=== PATIENT | female | born 1935 | race Caucasian/White ===

== ENCOUNTER 2020-08-04 16:33 | Inpatient (IN) ==
[2020-08-04] MEDS ORDERED: Aspirin 325 MG TABLET PO ONE (17:32)
[2020-08-04 17:57] LABS: Basophils % 0.5 %; Eosinophils # 0.1 K/mcL (0.0-0.6); Hematocrit 46.2 % (35.3-44.9); Hemoglobin 13.9 g/dL (11.5-15.4); Immature Granulocytes % 0.3 % (0-4); Lymphocytes # 1.2 K/mcL (0.6-4.6); Lymphocytes % 13.4 %; Mean Corpuscular HGB Conc 30.1 g/dL (31.6-35.5); Mean Corpuscular Volume 96.5 fL (83.0-100.0); Mean Platelet Volume 10.2 fL (9.4-12.4); Monocytes # 0.8 K/mcL (0.0-1.3); Monocytes % 9.1 %; Neutrophils # 6.7 K/mcL (1.6-8.9); Platelet Count 289 K/mcL (140-400); Red Blood Count 4.79 M/mcL (3.82-4.97); Red Cell Distribution Width 13.4 % (11.5-14.5); Segmented Neutrophils % 75.7 %; White Blood Count 8.8 K/mcL (4.3-11.1)
[2020-08-04 18:12] LABS: BUN/Creatinine Ratio 12 (6-26); Blood Urea Nitrogen 11 mg/dL (8-23); Calcium 10.1 mg/dL (8.6-10.3); Carbon Dioxide 30 mEq/L (23-29); Chloride 101 mEq/L (98-107); Glucose 153 mg/dL (70-105); Osmolality,Calculated 284 (280-300); Potassium 4.7 mEq/L (3.5-5.1); Sodium 136 mEq/L (136-145); eGFR For African Americans > 60 (> 60); eGFR For Non-African Americans 58 (> 60)
[2020-08-04 18:13] LABS: Troponin I < 0.03 ng/mL (< 0.04)
[2020-08-04 19:18] LABS: Adenovirus Not Detected (Not Detect); Bordetella Pertussis Not Detected (Not Detect); Chlamydophila pneumoniae Not Detected (Not Detect); Coronavirus 229E Not Detected (Not Detect); Coronavirus HKU1 Not Detected (Not Detect); Coronavirus NL63 Not Detected (Not Detect); Coronavirus OC43 Not Detected (Not Detect); Human Metapneumovirus Not Detected (Not Detect); Human Rhinovirus/Enterovirus Not Detected (Not Detect); Influenza A Subtype 2009 H1 Not Detected (Not Detect); Influenza B Not Detected (Not Detect); Mycoplasma pneumoniae Not Detected (Not Detect); Parainfluenza Virus 1 Not Detected (Not Detect); Parainfluenza Virus 2 Not Detected (Not Detect); Parainfluenza Virus 3 Not Detected (Not Detect); Parainfluenza Virus 4 Not Detected (Not Detect); Respiratory Syncytial Virus Not Detected (Not Detect); SARS-CoV-2 Not Detected (Not Detect)
[2020-08-04] MEDS ORDERED: cefTRIAXone 1,000 MG in 0.9 % Sodium Chloride Mini Bag 100 ML IVPB ONE (19:25)
[2020-08-04] MEDS ORDERED: Azithromycin 500 MG in 0.9 % Sodium Chloride 250 ML IVPB ONE (19:25)
[2020-08-04] MEDS ORDERED: Ondansetron ODT 4 MG TAB.RAPDIS SL PRN (19:32)
[2020-08-04] MEDS ORDERED: Acetaminophen 325 MG TABLET PO PRN (19:32)
[2020-08-04] MEDS ORDERED: cefTRIAXone 1,000 MG in Water for inj. (sterile) 10 ML IVP ONE (19:36)
[2020-08-04] MEDS ORDERED: methylPREDNISolone 125 MG/2 ML VIAL IVP ONE (19:41)
[2020-08-04] MEDS ORDERED: D5% in Water 1,000 ML IVC PRN (19:44)
[2020-08-04] MEDS ORDERED: *HR* Dextrose 50 % in Water (Vial) 50 ML VIAL IVP PRN (19:44)
[2020-08-04] MEDS ORDERED: Dextrose Gel 15 GM/37.5 ML TUBE PO PRN ×2 (19:44)
[2020-08-04] MEDS: Ipratropium/Albuterol Neb 3 ML IH SCH ×2 (20:31→23:52)
[2020-08-04] MEDS ORDERED: Isovue-370 500 ML BOTTLE IVP ONE (20:33)
[2020-08-04 22:05] LABS: INR 1.4; Prothrombin Time 15.8 Seconds (9.4-12.1)
[2020-08-04] MEDS: Insulin LISPRO 300 UNITS/3 ML VIAL SQ SCH (22:15)
[2020-08-05 02:43] LABS: BUN/Creatinine Ratio 13 (6-26); Blood Urea Nitrogen 11 mg/dL (8-23); Calcium 9.1 mg/dL (8.6-10.3); Carbon Dioxide 29 mEq/L (23-29); Chloride 103 mEq/L (98-107); Glucose 108 mg/dL (70-105); Magnesium 1.8 mg/dL (1.6-2.6); Osmolality,Calculated 284 (280-300); Phosphorous 3.2 mg/dL (2.7-4.5); Potassium 4.1 mEq/L (3.5-5.1); Sodium 137 mEq/L (136-145); eGFR For African Americans > 60 (> 60); eGFR For Non-African Americans > 60 (> 60)
[2020-08-05] MEDS: Ipratropium/Albuterol Neb 3 ML IH SCH ×6 (03:21→23:51)
[2020-08-05] MEDS: *HR* Enoxaparin 40 MG/0.4 ML SYRINGE SQ SCH (05:09)
[2020-08-05 06:17] LABS: Hematocrit 42.6 % (35.3-44.9); Hemoglobin 12.8 g/dL (11.5-15.4); Mean Corpuscular Hemoglobin 29.1 pg (28.0-33.3); Mean Corpuscular Volume 96.8 fL (83.0-100.0); Mean Platelet Volume 10.2 fL (9.4-12.4); Platelet Count 224 K/mcL (140-400); Red Cell Distribution Width 13.5 % (11.5-14.5); White Blood Count 5.7 K/mcL (4.3-11.1)
[2020-08-05] MEDS ORDERED: Regadenoson 0.4 MG/5 ML SYRINGE IVP ONE (07:00)
[2020-08-05] MEDS ORDERED: *HR* Metoprolol 5 MG/5 ML VIAL IVP ONE (09:07)
[2020-08-05] MEDS ORDERED: 0.9 % Sodium Chloride 250 ML IVC ONE (09:08)
[2020-08-05] MEDS: Insulin LISPRO 300 UNITS/3 ML VIAL SQ SCH ×4 (13:09→19:52)
[2020-08-05] MEDS: predniSONE 20 MG TABLET PO SCH (13:10)
[2020-08-05] MEDS: Aspirin 81 MG TAB.CHEW PO SCH (13:10)
[2020-08-05] MEDS: cefTRIAXone 2,000 MG in Water for inj. (sterile) 20 ML IVP SCH (19:43)
[2020-08-05] MEDS: Azithromycin 500 MG in 0.9 % Sodium Chloride 250 ML IVPB SCH (19:44)
[2020-08-06] MEDS: Ipratropium/Albuterol Neb 3 ML IH SCH ×6 (03:56→23:48)
[2020-08-06] MEDS: *HR* Enoxaparin 40 MG/0.4 ML SYRINGE SQ SCH (05:07)
[2020-08-06] MEDS: Aspirin 81 MG TAB.CHEW PO SCH (08:21)
[2020-08-06] MEDS: predniSONE 20 MG TABLET PO SCH (08:21)
[2020-08-06] MEDS: Insulin LISPRO 300 UNITS/3 ML VIAL SQ SCH ×4 (08:22→22:02)
[2020-08-06] MEDS: Metoprolol XL (24 HR) Succ 25 MG TAB.ER.24H PO SCH (09:21)
[2020-08-06] MEDS: amLODIPine 5 MG TABLET PO SCH (09:21)
[2020-08-06] MEDS: Famotidine 20 MG TABLET PO SCH (09:21)
[2020-08-06] MEDS: PARoxetine 20 MG TABLET PO SCH (09:21)
[2020-08-06] MEDS: Isosorbide MONOnitrate (24 HR) 30 MG TAB.ER.24H PO SCH (09:21)
[2020-08-06] MEDS: Aspirin Enteric Coated 81 MG Tablet PO SCH (09:22)
[2020-08-06] MEDS: Apixaban 5 MG TABLET PO SCH ×2 (11:55→21:59)
[2020-08-06] MEDS: cefTRIAXone 2,000 MG in Water for inj. (sterile) 20 ML IVP SCH (21:59)
[2020-08-06] MEDS: Azithromycin 500 MG in 0.9 % Sodium Chloride 250 ML IVPB SCH (22:00)
[2020-08-07] MEDS: Ipratropium/Albuterol Neb 3 ML IH SCH ×2 (03:52→07:56)
[2020-08-07 07:10] VITALS: BP 162/84
[2020-08-07] MEDS: amLODIPine 5 MG TABLET PO SCH (07:43)
[2020-08-07] MEDS: Isosorbide MONOnitrate (24 HR) 30 MG TAB.ER.24H PO SCH (07:43)
[2020-08-07] MEDS: Apixaban 5 MG TABLET PO SCH (07:43)
[2020-08-07] MEDS: Insulin LISPRO 300 UNITS/3 ML VIAL SQ SCH (07:43)
[2020-08-07] MEDS: Metoprolol XL (24 HR) Succ 25 MG TAB.ER.24H PO SCH (07:43)
[2020-08-07] MEDS: PARoxetine 20 MG TABLET PO SCH (07:43)
[2020-08-07] MEDS: Aspirin Enteric Coated 81 MG Tablet PO SCH (07:43)
[2020-08-07] MEDS: Famotidine 20 MG TABLET PO SCH (07:43)
[2020-08-07] MEDS: predniSONE 20 MG TABLET PO SCH (07:43)
== END 2020-08-07 10:39 | disposition home or self-care (01) | DRG 871 ==
LOC: EMEROOARM 16:33 → 3BNU 16:33
PROVIDERS: ADMIT Family Medicine; ATTEND Family Medicine

== ENCOUNTER 2022-01-06 19:22 | Inpatient (IN) ==
[2022-01-06] MEDS ORDERED: 0.9 % Sodium Chloride 1,000 ML IVC ONE (19:44)
[2022-01-06 20:14] LABS: Basophils % 0.1 %; Eosinophils % 0.1 %; Hematocrit 38.5 % (35.3-44.9); Hemoglobin 12.2 g/dL (11.5-15.4); Immature Granulocytes % 0.7 % (0-4); Lymphocytes # 0.8 K/mcL (0.6-4.6); Lymphocytes % 5.4 %; Mean Corpuscular HGB Conc 31.7 g/dL (31.6-35.5); Mean Corpuscular Hemoglobin 28.9 pg (28.0-33.3); Mean Corpuscular Volume 91.2 fL (83.0-100.0); Mean Platelet Volume 10.8 fL (9.4-12.4); Monocytes # 0.7 K/mcL (0.0-1.3); Monocytes % 4.7 %; Neutrophils # 13.6 K/mcL (1.6-8.9); Platelet Count 216 K/mcL (140-400); Red Blood Count 4.22 M/mcL (3.82-4.97); Red Cell Distribution Width 14.2 % (11.5-14.5); White Blood Count 15.2 K/mcL (4.3-11.1)
[2022-01-06 20:21] LABS: INR 1.9; Prothrombin Time 21.5 Seconds (9.4-12.1)
[2022-01-06 20:24] LABS: Activated Partial Thrombo Time 36.1 Seconds (26.0-36.0)
[2022-01-06 20:31] LABS: Albumin 3.6 g/dL (3.5-5.7); Bilirubin,Direct 0.4 mg/dL (0.0-0.2); Bilirubin,Indirect 0.6 mg/dL (0.0-1.0); Calcium 10.2 mg/dL (8.6-10.3); Globulin 3.6 g/dL (2.4-3.5); Magnesium 1.7 mg/dL (1.6-2.6); Phosphorous 2.4 mg/dL (2.7-4.5); Potassium 4.4 mEq/L (3.5-5.1); Total Protein 7.2 g/dL (6.4-8.9)
[2022-01-06 20:41] LABS: Troponin I 0.07 ng/mL (< 0.04)
[2022-01-06] MEDS ORDERED: *HR* LORazepam 2 MG/ML VIAL IVP ONE (21:45)
[2022-01-06 21:46] LABS: Bacteria,Urine Few per hpf (None-Few); Bilirubin,Urine Negative (Negative); Blood,Urine Negative (Negative); Clarity,Urine Turbid (Clear); Color,Urine Yellow (Yellow); Glucose,Urine (UA) Normal (Normal); Hyaline Casts,Urine Few per lpf (None Seen); Ketones,Urine Negative (Negative); Leukocyte Esterase,Urine Negative (Negative); Mucus,Urine Few per lpf (None-Few); Nitrite,Urine Negative (Negative); PH,Urine 6.5 pH Units (5.0-8.0); Protein,Urine 30 mg/dL (Neg-Trace); RBC,Urine 0-3 per hpf (0-3); Specific Gravity,Urine 1.014 (1.010-1.025); Squamous Epithelial Cell,Urine Moderate per hpf (None-Few)
[2022-01-06] MEDS ORDERED: Ipratropium/Albuterol Neb 3 ML IH ONE (22:16)
[2022-01-06] MEDS ORDERED: methylPREDNISolone 125 MG/2 ML VIAL IVP ONE (22:16)
[2022-01-06] MEDS ORDERED: cefTRIAXone 1,000 MG in 0.9 % Sodium Chloride Mini Bag 100 ML IVPB ONE (22:29)
[2022-01-06 23:15] LABS: Influenza A PCR Negative (Negative); Influenza B PCR Negative (Negative); Resp. Syncytial Virus PCR Negative (Negative)
[2022-01-06 23:16] LABS: SARS-CoV-2 by PCR (In House) Negative (Negative)
[2022-01-06] MEDS ORDERED: Melatonin 3 MG TABLET PO PRN (23:57)
[2022-01-06] MEDS ORDERED: Ondansetron 4 MG/2 ML VIAL IVP PRN (23:57)
[2022-01-06] MEDS ORDERED: Acetaminophen 325 MG TABLET PO PRN (23:57)
[2022-01-06] MEDS ORDERED: Naloxone 0.4 MG/ML INJ IVP PRN (23:57)
[2022-01-07] MEDS ORDERED: 0.9 % Sodium Chloride 250 ML IVC ONE (01:03)
[2022-01-07] MEDS: Azithromycin 500 MG in 0.9 % Sodium Chloride 250 ML IVPB ONE ×2 (01:59→03:44)
[2022-01-07 02:28] LABS: Basophils % 0.2 %; Hematocrit 35.6 % (35.3-44.9); Hemoglobin 11.1 g/dL (11.5-15.4); Immature Granulocytes % 0.4 % (0-4); Lymphocytes # 0.3 K/mcL (0.6-4.6); Lymphocytes % 2.8 %; Mean Corpuscular HGB Conc 31.2 g/dL (31.6-35.5); Monocytes # 0.2 K/mcL (0.0-1.3); Monocytes % 1.3 %; Neutrophils # 11.4 K/mcL (1.6-8.9); Platelet Count 209 K/mcL (140-400); Red Blood Count 3.83 M/mcL (3.82-4.97); Red Cell Distribution Width 14.3 % (11.5-14.5); Segmented Neutrophils % 95.3 %; White Blood Count 11.9 K/mcL (4.3-11.1)
[2022-01-07] MEDS ORDERED: Azithromycin 500 MG in 0.9 % Sodium Chloride 250 ML IVPB ONE (03:00)
[2022-01-07 03:08] LABS: Alanine Aminotransferase 6 Units/L (7-52); Albumin 3.2 g/dL (3.5-5.7); Alkaline Phosphatase 78 Units/L (34-104); Aspartate Amino Transferase 30 Units/L (13-39); BUN/Creatinine Ratio 19 (6-26); Bilirubin,Total 0.8 mg/dL (0.3-1.0); Blood Urea Nitrogen 18 mg/dL (8-23); Calcium 9.4 mg/dL (8.6-10.3); Carbon Dioxide 25 mEq/L (23-29); Chloride 100 mEq/L (98-107); Globulin 3.1 g/dL (2.4-3.5); Glucose 134 mg/dL (70-105); Magnesium 1.7 mg/dL (1.6-2.6); Osmolality,Calculated 280 (280-300); Phosphorous 2.6 mg/dL (2.7-4.5); Sodium 133 mEq/L (136-145); Total Protein 6.3 g/dL (6.4-8.9); Troponin I < 0.03 ng/mL (< 0.04); eGFR For African Americans > 60 (> 60); eGFR For Non-African Americans 57 (> 60)
[2022-01-07] MEDS ORDERED: Albuterol 2.5 MG/3 ML NEBULIZER IH PRN (05:41)
[2022-01-07] MEDS ORDERED: *HR* Dextrose 50 % in Water (Syg) 50 ML SYRINGE IVP PRN (05:45)
[2022-01-07] MEDS ORDERED: D5% in Water 1,000 ML IVC PRN (05:45)
[2022-01-07] MEDS ORDERED: Dextrose 4 GM Chewable Tablets PO PRN ×2 (05:45)
[2022-01-07] MEDS: 0.9 % Sodium Chloride 1,000 ML IVC SCH ×2 (08:14→18:52)
[2022-01-07] MEDS: predniSONE 20 MG TABLET PO SCH (08:15)
[2022-01-07] MEDS: Insulin LISPRO 300 UNITS/3 ML VIAL SUBQ SCH ×3 (08:16→16:47)
[2022-01-07] MEDS: Ipratropium/Albuterol Neb 3 ML IH SCH ×3 (11:30→23:19)
[2022-01-07] MEDS: Metoprolol XL (24 HR) Succ 25 MG TAB.ER.24H PO SCH (14:43)
[2022-01-07] MEDS ORDERED: Insulin LISPRO 300 UNITS/3 ML VIAL SUBQ SCH (21:00)
[2022-01-07] MEDS: Apixaban 5 MG TABLET PO SCH (22:13)
[2022-01-07] MEDS ORDERED: cefTRIAXone 1,000 MG in 0.9 % Sodium Chloride 10 ML IVP ONE (22:30)
[2022-01-08 01:03] LABS: Hematocrit 36.8 % (35.3-44.9); Hemoglobin 11.4 g/dL (11.5-15.4); Mean Corpuscular Volume 93.6 fL (83.0-100.0); Mean Platelet Volume 10.8 fL (9.4-12.4); Platelet Count 227 K/mcL (140-400); Red Blood Count 3.93 M/mcL (3.82-4.97); Red Cell Distribution Width 14.1 % (11.5-14.5); White Blood Count 12.7 K/mcL (4.3-11.1)
[2022-01-08 02:43] LABS: BUN/Creatinine Ratio 25 (6-26); Blood Urea Nitrogen 23 mg/dL (8-23); Calcium 8.9 mg/dL (8.6-10.3); Carbon Dioxide 22 mEq/L (23-29); Chloride 100 mEq/L (98-107); Glucose 228 mg/dL (70-105); Osmolality,Calculated 281 (280-300); Potassium 3.9 mEq/L (3.5-5.1); Sodium 130 mEq/L (136-145); eGFR For African Americans > 60 (> 60); eGFR For Non-African Americans 58 (> 60)
[2022-01-08] MEDS: Ipratropium/Albuterol Neb 3 ML IH SCH ×2 (03:39→11:20)
[2022-01-08] MEDS ORDERED: Azithromycin 500 MG in D5% in Water 250 ML IVPB SCH (06:00)
[2022-01-08 07:30] VITALS: BP 135/99; PULSE 112; TEMP 97.4; O2SAT 96
[2022-01-08] MEDS: Metoprolol XL (24 HR) Succ 25 MG TAB.ER.24H PO SCH (07:57)
[2022-01-08] MEDS: predniSONE 20 MG TABLET PO SCH (07:57)
[2022-01-08] MEDS: Apixaban 5 MG TABLET PO SCH (07:57)
[2022-01-08] MEDS: Insulin LISPRO 300 UNITS/3 ML VIAL SUBQ SCH (07:57)
[2022-01-08] MEDS ORDERED: Famotidine 20 MG TABLET PO SCH (09:00)
[2022-01-08] MEDS ORDERED: PARoxetine 20 MG TABLET PO SCH (09:00)
[2022-01-08] MEDS ORDERED: Aspirin Enteric Coated 81 MG Tablet PO SCH (09:00)
[2022-01-08] MEDS ORDERED: Doxycycline 100 MG CAPSULE PO SCH (09:00)
== END 2022-01-08 11:40 | disposition home or self-care (01) | DRG 871 ==
LOC: EMEROOARM 19:22 → 2ANU 19:22 → SUATTDRO 01-07 14:56
PROVIDERS: ADMIT Internal Medicine; ATTEND Internal Medicine